=== PATIENT | male | born 1955 | race Caucasian/White ===

== ENCOUNTER 2017-01-22 09:42 | Inpatient (IN) | payer BC ==
[~2017-01-22] VITALS: Ht 172.7 cm; Wt 81.6 kg
[2017-01-22 09:42] VITALS: BP 96/57; PULSE 186; RESP 22; TEMP 96; O2SAT 100
--- NOTE | 2017-01-22 09:42 | NUR ---
Placed in room 5 . Placed on customer services manager, blood pressure machine and pulse oximeter. To gown for exam. Side rails up. Report given to TONG ANTONIO.
[2017-01-22] MEDS ORDERED: NACL 0.9% 1,000 ML IV SCH (09:51)
--- NOTE | 2017-01-22 09:51 | NUR ---
Nitroglycerin 0.4 mg administered x1, MD aware
--- NOTE | 2017-01-22 09:56 | NUR ---
Unable to administer second Nitro due to BP 96/57 , Dr Shanks aware and agreeable
[2017-01-22] MEDS ORDERED: NITROGLYCERIN 0.4 MG TAB.SUBL SL ONE (10:00)
[2017-01-22] MEDS ORDERED: DILTIAZEM HCL 25 MG/5 ML VIAL IVP ONE (10:00)
[2017-01-22] MEDS ORDERED: ASPIRIN 81 MG TAB.CHEW PO ONE (10:00)
--- NOTE | 2017-01-22 10:01 | NUR ---
cxr at bedside.
--- NOTE | 2017-01-22 10:16 | NUR ---
Pt reports feeling better, CP decrease to 3/10 at this time. SR on monitor. Co-workers at bedside.
[2017-01-22 10:32] LABS: BASOPHILS # (AUTO) 0.1 K/uL (0.0-0.2); BASOPHILS % (AUTO) 0.7 % (0.0-2.0); EOSINOPHILS # (AUTO) 0.1 K/uL (0.0-0.4); HEMATOCRIT 46.1 % (36-54); HEMOGLOBIN 14.7 g/dL (14.0-18.0); LYMPHOCYTES # (AUTO) 3.2 K/uL (1.0-5.5); LYMPHOCYTES % (AUTO) 35.3 % (20.5-51.5); MEAN CORPUSCULAR HEMOGLOBIN 26 pg (27-31); MEAN CORPUSCULAR HGB CONC 32 % (32-36); MEAN CORPUSCULAR VOLUME 83 fL (79.0-98.0); MONOCYTES # (AUTO) 0.6 K/uL (0.0-1.0); MONOCYTES % (AUTO) 6.5 % (1.7-9.3); NEUTROPHILS % (AUTO) 56.5 % (40.0-70.0); PLATELET COUNT (AUTO) 271 K/uL (130-430); RED BLOOD CELL COUNT(AUTO) 5.58 MIL/uL (4.2-6.2); RED CELL DISTRIBUTION WIDTH 19.3 % (9.0-15.0)
[2017-01-22 10:46] LABS: CALCIUM 8.7 mg/dL (8.4-11.0); CREATININE 1.39 mg/dL (0.55-1.30); POTASSIUM 3.3 mmol/L (3.5-5.1)
[2017-01-22 10:47] LABS: INR 0.9 (0.80-1.20)
[2017-01-22 11:02] LABS: ALBUMIN 3.9 g/dL (3.4-4.8); FREE T4 (FREE THYROXINE) 0.9 ng/dL (0.6-1.6); THYROID STIMULATING HORMONE 2.06 uIu/mL (0.34-4.82); TOTAL BILIRUBIN 1.6 mg/dL (0.0-1.0); TOTAL PROTEIN, SERUM 7.4 g/dL (6.4-8.3)
[2017-01-22 11:12] LABS: C-REACTIVE PROTEIN QUANT 0.2 mg/dL (0-0.5)
[2017-01-22 11:25] LABS: ERYTHROCYTE SEDIMENTATION RATE 6 MM/HR (0-15)
--- NOTE | 2017-01-22 11:37 | NUR ---
DR SELLERS SPEAKING TO DR BUENO
--- NOTE | 2017-01-22 11:43 | NUR ---
orders received from Dr Flores pt to be admitted to Tele -Afib
--- NOTE | 2017-01-22 11:46 | NUR ---
Spoke with Dr Shanks, states pt does not meet sepsis protocol
--- NOTE | 2017-01-22 11:50 | NUR ---
Report given to Peter ANTONIO, updated on status, labs and vitals. Pt stable for transfer. VSS, Controlled AFIB at 96. bp 107/88. CN notified. Will transfer pt to tele with monitor.
--- NOTE | 2017-01-22 12:05 | NUR ---
ADMISSION NOTE Received patient from ER via gurney. Patient admitted with diagnosis of chest pain. Patient is awake, alert, oriented X 4. Patient oriented to hospital room, call light, toileting, pain management and safety-teach back done. Patient informed that Adriana will be RN nurse and that their room number is 100b. Personal belongings checked and Belongings List documented. Call light within reach.
[2017-01-22 12:13] VITALS: BP 120/75; PULSE 96; RESP 17; TEMP 96.8; O2SAT 98
[2017-01-22 12:32] LABS: BILIRUBIN,URINE NEGATIVE (NEGATIVE); BLOOD, URINE NEGATIVE (NEGATIVE); CLARITY/URINE CLEAR (CLEAR); COLOR,URINE YELLOW (YELLOW); GLUCOSE,URINE NEGATIVE (NEGATIVE); KETONES,URINE NEGATIVE (NEGATIVE); LEUKOCYTE ESTERASE ,URINE NEGATIVE (NEGATIVE); NITRITE, URINE NEGATIVE (NEGATIVE); PROTEIN URINE NEGATIVE (NEGATIVE); UROBILINOGEN,URINE 0.2 (0.2-1.0)
[2017-01-22 12:53] VITALS: BP 120/75; PULSE 96; RESP 17; TEMP 96.8; O2SAT 98
--- NOTE | 2017-01-22 13:19 | NUR ---
SPOKE TO DR VASQUEZ THAT HE WAS ACCIDENTALLY CALLED FOR INTAKE MAN. STATES HE ALREADY SAW THE PATIENT AND TO KEEP CURRENT ORDERS ACTIVE HE HAS ALREADY SEEN THE PATIENT
--- NOTE | 2017-01-22 14:00 | NUR ---
NOTE: PATIENT IS RESTING COMFORTABLY IN BED. NO S/S OF DISTRESS OR SOB. PATIENT IS ALERT AND ORIENTED, ABLE TO EXPRESS NEEDS, AND ASK FOR ASSISTANCE. CALL LIGHT IN REACH, BED IN LOWEST POSITION, AND WILL CONTINUE TO MONITOR.
[2017-01-22] MEDS ORDERED: LISI40TA4 PO (14:06)
[2017-01-22] MEDS ORDERED: ALLO300T2 PO (14:06)
[2017-01-22] MEDS ORDERED: COLC0.6T67 PO (14:06)
--- NOTE | 2017-01-22 18:00 | NUR ---
PT IN BED, NO C/O OF CHEST PAIN, NO DISTRESS, RESTING COMFORTABLY, PT WAITING FOR MD. TOLD PT THAT MD MAY BE COMING BACK TONIGHT
--- NOTE | 2017-01-22 18:03 | NUR ---
Consult Called Reason for consultation: A-FIB Was consult called: Yes Person who was notified:Scarlet Consulting Physician: Rodrigo Hilton Order by: Sandra
[2017-01-22] MEDS ORDERED: ACETAMINOPHEN 325 MG TABLET PO PRN (18:45)
[2017-01-22] MEDS ORDERED: MORPHINE 2 MG/ML INJ. SYRINGE IVP PRN (18:45)
--- NOTE | 2017-01-22 19:36 | NUR ---
Closing note: patient is resting comfortably in bed. no s/s of distress or sob. patient is alert and oriented, able to express needs, and ask for assistance. Dr. Flores aware of potassium level. He was called to inform and ask for med rec to be done. He imputed orders. Call light in reach, bed in lowest position, and will give report to night nurse.
--- NOTE | 2017-01-22 20:00 | NUR ---
OPENING ASSESSMENT PATIENT ALERT/ORIENTED X4. SPEECH IS CLEAR AND APPROPRIATE. DENIES PAIN. AMBULATES WITH STEADY GAIT. TELE SHOWS SR WITH ST SEGMENT DEPRESSION. DENIES CHEST PAIN. ALL O2 SAT. ON R/A IS 97%. NO SOB NOTED.RAC 24 G INTACT AND PATENT. TOLERATING CARDIAC DIET WELL. DENIES NAUSEA. VOIDING CLEAR YELLOW IN URINAL. CALL LIGHT WITHIN EASY ACCESS. NOTIFIED PT. TO CALL NURSE FOR ALL NEEDS, ESPECIALLY CHEST PAIN AND SOB.
[2017-01-22 20:15] VITALS: BP 135/84; PULSE 80; RESP 18; TEMP 98.7; O2SAT 97
--- NOTE | 2017-01-22 21:10 | NUR ---
DR.REZVANI DR. BLUM NOTIFIED THAT PATIENTS TROPONIN 21.352. SEE ORDERS NEWLY ENTERED. VITALS STABLE. PATIENT DENIES PAIN OR ANY DISCOMFORT @ THIS TIME.
[2017-01-22] MEDS ORDERED: *HEPARIN PER PHARMACY XX ONE (21:15)
[2017-01-22] MEDS ORDERED: HEPARIN SODIUM,PORCINE 5000 UNITS/ML VIAL IVP PRN (21:15)
[2017-01-22] MEDS: METOPROLOL TARTRATE 25 MG TABLET PO SCH (21:28)
[2017-01-22] MEDS ORDERED: HEPARIN SODIUM,PORCINE 2000 UNITS/0.4 ML BOLUS IVP PRN (22:00)
--- NOTE | 2017-01-22 22:00 | NUR ---
DR. JORGE PATEL CARDIOLOGY NOTIFIED PT. TROPONIN 21.352. REPEATED DR. BLUM HEPARIN DRIP ORDERS. AGREED WITH CURRENT ORDERS.
[2017-01-22] MEDS ORDERED: POTASSIUM CHLORIDE 20 MEQ TAB.PRT.SR PO ONE (22:30)
[2017-01-22] MEDS: HEPARIN 25,000 UNITS/D5W 250ML 250 ML IV PRN (22:33)
--- NOTE | 2017-01-22 22:45 | NUR ---
HEPARIN DRIP GAVE HEPARIN 3000 UNITS IVP AND STARTED ON HEPARIN IV DRIP 7ML/HR. 700 UNITS/HR.
[2017-01-23 00:12] VITALS: BP 116/73; PULSE 77; RESP 18; TEMP 97.2; O2SAT 98
--- NOTE | 2017-01-23 00:50 | NUR ---
PT,PTT, INR RESULTS PTT- 61.4
[2017-01-23 01:45] LABS: PROTHROMBIN TIME 10.4 SECS (9.5-12.5)
--- NOTE | 2017-01-23 02:05 | NUR ---
MD STRICKLAND CALLED [facility] AT SPOKE WITH DR.JANDIAL WRIGHT RAJNISH TEST ENG.
--- NOTE | 2017-01-23 02:16 | NUR ---
PAGED PAGED JAKOB HOPE AT [phone] SPOKE WITH TEMI.
--- NOTE | 2017-01-23 02:20 | NUR ---
DR. PEDRO HOPE NOTIFIED PATIENT ON HEPARIN DRIP. MADE AWARE PATIENT TROPONIN 21.353. STATED THAT DR. BLUM WAS NOTIFIED EARLIER AND ALSO DR HOLLIS NOTIFIED WAS NOTIFIED.
--- NOTE | 2017-01-23 02:20 | NUR ---
PAGED PAGED SILKE LIN AT [phone] SPOKE WITH TEMI.
--- NOTE | 2017-01-23 02:47 | NUR ---
2ND CALL OUT TO SILKE BETHEA AT [phone] SPOKE WITH TEMI.
--- NOTE | 2017-01-23 03:19 | NUR ---
DR.REZVANI DR. BLUM AWARE OF RECENT PTT 61.4
[2017-01-23 03:59] VITALS: BP 121/84; PULSE 68; RESP 18; TEMP 96.6; O2SAT 99
--- NOTE | 2017-01-23 04:00 | NUR ---
ROUNDS PATIENT DENIES CHEST PAIN OR ANY DISCOMFORT. RESTING QUIETLY. CONTINUES ON HEPARIN DRIP 700UNITS/HR.
--- NOTE | 2017-01-23 06:25 | NUR ---
CLOSING NOTES NO DISTRESS NOTED. HEPARIN DRIP @ 700UNITS/HR. DENIES CHEST PAIN OR ANY OTHER DISCOMFORT. CALL LIGHT WITHIN EASY ACCESS. INFORMED PATIENT TO CALL NURSE FOR ALL NEEDS, ESPECIALLY CHEST PAIN, SOB.
[2017-01-23 07:28] LABS: CALCIUM 8.5 mg/dL (8.4-11.0); CREATININE 0.95 mg/dL (0.55-1.30); POTASSIUM 3.9 mmol/L (3.5-5.1)
--- NOTE | 2017-01-23 07:40 | NUR ---
am rounds, change of shift. awake, alert and oriented, denies any chest pain nor shortness of breath. On Heparin drip at 700 units/hr @ 7cc/hr.call light within reach, instructed to call for help.
--- NOTE | 2017-01-23 07:50 | NUR ---
md rounds: patient seen by dr urbano with orders transfer to [facility] for cardiac catheterization.ekg results seen by dr urbano.
[2017-01-23 08:00] VITALS: PULSE 80; RESP 18; TEMP 97.4; O2SAT 95
[2017-01-23] MEDS: ASPIRIN 325 MG TABLET (ECOTRIN) PO SCH (08:31)
[2017-01-23] MEDS: METOPROLOL TARTRATE 25 MG TABLET PO SCH ×2 (08:31→21:36)
--- NOTE | 2017-01-23 08:36 | NUR ---
due po meds given, instructed to be NPO after breakfast per nurse Kourtney.
--- NOTE | 2017-01-23 08:40 | NUR ---
CM: Rec'd order for transfer to [facility] for cardiac cath. No insurance contact information noted in BAR notes--I called Lexii in admitting to urgently obtain contact info--Pt has [facility] MG--I looked in [facility] system and found ph#for his MD office...called [phone] per his MDs office instructions and asked for case hardener--will initiate transfer--JAKE ANTONIO Addendum: 01/23/17 at 0904 by Claudette KENNEDY Ordered Radiology CD. Placed transportation packet in nurses station. Addendum: 01/23/17 at 0915 by Vivian Goldstein RN DAGOBERTO for Ab at [phone] to call me back cameron--I called back again and insisted on speaking with live person instead of leaving message--I was given Out of network jose juan Rivera's cell#[phone]--she said [facility] is contracted--she will have their case hardener call me back--JAKE ANTONIO
[2017-01-23] MEDS ORDERED: ATORVASTATIN 20 MG TABLET PO ONE (09:30)
--- NOTE | 2017-01-23 10:00 | NUR ---
Faxed UR review, all pertinent medical information to [facility] per request of Lexii in admitting as she said BS at risk as pt is OON to BS fax#[phone]--ref#[id number]--Byy Violetta at , BS will review case promptly and make decision where to transfer pt, as they might want to transfer pt to nearest hospital that has cardiac cardiac cath lab manager instead of transfer to [facility], which is still considered Out of network--requested transportation auth also--also faxed UR review and all pertinent medical information to Tresa at [facility] at fax#[phone]--CB#[phone]--I checked with [facility] cardiac cath lab manager-Lilibeth, and she said they have available opening if pt needs cath there--PMD and aerospace medicine physician Dr. Hilton made aware-pt updated and he is agreeable to transfer to another hospital for cardiac cath- He said he had his last angiogram at [facility] in 2013--nurse Kourtney made aware also--JAKE RN
--- NOTE | 2017-01-23 10:10 | NUR ---
Heparin drip: PTT 44.9 , rate increase to 800 u/hr per protocol. repeat PTT after 6 hours of adjustment.
--- NOTE | 2017-01-23 10:55 | NUR ---
Case mgt: I called [facility] at [phone] as our fax to them transmitted by [phone]--I spoke to Chani Ramirez in authorizations department-she said the case is being reviewed-I expressed the urgency needed for the authorization to Chani Crocker. She said there is nothing more she can do as it is in urgent review already and asked me to call back after lunchtime. I let her know pt will need nurse transport as pt is on heparin drip also and ambulance request is on fax cover sheet already faxed to [facility] [employer] [facility] earlier today- RN Addendum: 01/23/17 at 1302 by Claudette KENNEDY Called contracted ambulance [facility] [phone] spoke with Thomas arranged ACLS (Customer Operations Intern) transport brick picker soonest available to [facility] direct admit builder's labourer. Thomas stated dispatch will return call with time transport will be arranged Conf.#[id number].
[2017-01-23 12:00] VITALS: BP 112/79; PULSE 78; RESP 18; TEMP 97.4; O2SAT 97
--- NOTE | 2017-01-23 12:15 | NUR ---
Case mgt: Calling [facility] again to f/u on urgent transfer request to hospital for cardiac catheterization--S/W Geovanna, who says [facility]-I explained I have initiated this urgent request for transfer for cardiac cath since early am--she transferred me to Geovanna at , who said initially she will send a list-Iasked about [facility], she transferred me to provider services dept and I had to explain again pt situation-HMO, etc.. but [facility] is plan at risk, as I was told by Violetta at [facility]-I am now told [facility] is [facility] provider and to have [facility] call them at [phone]--ALISON Wilkins has faxed face sheet and order for cardiac cath to [facility] already--I called [facility] and s/w admitting, who is giving Amelia message to call me back. I explained urgent need as apparently Dr. Hilton scheduled pt at 2pm today--I have left message with Dr. Hilton to call me regarding scheduled time of procedure as [facility] hasn't gotten auth yet--ALISON Wilkins is calling [facility] to schedule ACLS ambulance transport--JAKE ANTONIO
--- NOTE | 2017-01-23 12:43 | NUR ---
CARDIO PAGED: CALLED DR BUENO'S EXCHANGE AND SPOKE WITH NITESH.
--- NOTE | 2017-01-23 12:46 | NUR ---
CARDIO: SPOKE WITH DR BUENO ,PT DOES NOT NEED HEPARIN DRIP DURING TRANSFER,MAY GIVE HEPARIN IV BOLUS PRIOR TO TRANSFER.
--- NOTE | 2017-01-23 13:09 | NUR ---
Case mgt--: I called Lilibeth in cath lab radiological technologist at [facility] and explained I had left messages with both Amelia and Shobha in admitting, we faxed order and face sheet to them and auth probably still pending at this time-Ambulance transport initiated by severiano Wilkins through [facility]-but no auth for transfer yet to [facility]--Lilibeth in cath lab radiological technologist will pass on info to Dr. Hilton. JAKE ANTONIO Addendum: 01/23/17 at 1401 by Claudette KENNEDY Received call from Frances at [facility] who stated is at risk and [facility] is not contracted with . Frances will cancel transport. Called JAVY Gtz at [facility] [phone] who directed DCP to call SAMPSON Shipley [phone]. Called Violetta who stated due to patient being out of area [facility] is at risk for transport. Called [facility] [phone] spoke with Akosua zuñiga for Conf.#[id number] transport to be reactivated call got transferred to Janeth who works in benefits dept who confirmed with Darcy at [facility] call Ref#[id number] is at risk for transport due to zip code patient is being transported from. Called [facility] ambulance [phone] placed ACLS transport on will call.
--- NOTE | 2017-01-23 13:32 | NUR ---
pt. up in chair conversing with roommate, denies any chest pain. remain NPO, still waiting for authorization for the procedure and transfer.
--- NOTE | 2017-01-23 14:27 | NUR ---
DC planning: Per Geovanna at [facility], she will not give authorization for [facility] transfer and keeps telling me [facility] needs to call for auth once they receive pt into a bed. I [facility] explained [facility], Amelia, cannot give me a bed and accept pt until they have an auth, and it is considered EMTALA violation to just send a pt to a facility without an acceptance first from the facility. Geovanna kept saying this is their process. I s/w Dr. Hilton, he said to transfer [facility] and cardiac cath no longer urgent request--I s/w to pt about this plan--I contacted Violetta at [facility] who said to call [facility] at [phone]--I called (that is warehouse coordinator#) and left message to call me regarding transfer to [facility]--JAKE ANTONIO
[2017-01-23] MEDS ORDERED: COMMUNICATION ORDER XX ONE (14:45)
--- NOTE | 2017-01-23 15:35 | NUR ---
DC planning: I spoke with Hyacinth at [facility]--she has no tele bed currently-I faxed her info to fax#[phone]--I called Tresa at [facility] to see which MDs are contracted --Hospitalist=Dr. Conti [phone], M48/M60 Tank Driver=Dr. Duffy at [phone]--I gave both of these MD names/# to Dr. Hilton. Per Violetta at [place], (she checked with [employer])-we are to use [employer] service (It's on will-call) to arrange ACLS transport-use auth#[id number]-Gecmwljo packet and cd at nurse station--nurse Oconnell made aware-JAKE ANTONIO
[2017-01-23] MEDS ORDERED: HEPARIN SODIUM,PORCINE 5000 UNITS/ML VIAL IV ONE (17:00)
[2017-01-23 17:12] VITALS: BP 133/80; PULSE 86; RESP 17; TEMP 98.6; O2SAT 98
--- NOTE | 2017-01-23 18:10 | NUR ---
pt. sitting at the edge of the bed and having his dinner, no complaints, still waiting patiently.
--- NOTE | 2017-01-23 18:15 | NUR ---
PTT: PTT=44.3.HEPARIN DRIP RATE ADJUSTED TO 900 UNITS/H PER PROTOCOL.REPEAT APTT LEVEL AFTER 6HOURS OF RATE ADJUSTMENT.
--- NOTE | 2017-01-23 18:45 | NUR ---
condition unchanged, remain on Heparin drip @ 800 units/hr, no chest pain.nurse Kourtney will endorse pt. on change of shift.
[2017-01-23 20:00] VITALS: BP 135/89; PULSE 79; RESP 18; TEMP 97; O2SAT 96
--- NOTE | 2017-01-23 20:00 | NUR ---
Initial PM Note Pt is resting comfortably in bed with Heparin drip infusing well in RAC at 900 units/hr. IV site is without any signs of infiltration. No signs of active bleeding noted. Pt is able to make his needs known. No c/o pain or discomfort. Call light is with pt. Will continue o monitor pt.
--- NOTE | 2017-01-23 22:00 | NUR ---
Rounds Pt is resting comfortably in bed. Call light is with pt.
--- NOTE | 2017-01-24 | NUR ---
Rounds Pt is sleeping comfortably in bed. No respiratory distress noted. Call light is with pt.
[2017-01-24 00:22] VITALS: BP 129/81; PULSE 75; RESP 18; TEMP 98; O2SAT 96
--- NOTE | 2017-01-24 01:55 | NUR ---
PTT Result PTT 45.7. Heparin Drip rate increased by 100 units (1 ml) per protocol from 900 units/hr to 1000 units/hr. Next PTT scheduled for 0755, six hours after rate adjustment. Pt is sleeping comfortably in bed and no evidence of active bleeding noted. IV site is without any signs of infiltration. Call light is with pt.
--- NOTE | 2017-01-24 03:30 | NUR ---
Rounds Pt is sleeping without any resp distress noted. Fall and safety precautions are in place. Heparin drip is infusing well.
[2017-01-24 03:40] VITALS: BP 139/90; PULSE 75; RESP 18; TEMP 97.5; O2SAT 97
[2017-01-24] MEDS: HEPARIN 25,000 UNITS/D5W 250ML 250 ML IV PRN (04:27)
--- NOTE | 2017-01-24 05:00 | NUR ---
Rounds Pt is sleeping comfortably in bed.
--- NOTE | 2017-01-24 06:58 | NUR ---
Closing Note Pt is awake and resting comfortably in bed. All pt's needs were attended to. No fall or injury noted this shift. Will endorse to day shift nurse.
[2017-01-24 08:00] VITALS: BP 144/92; PULSE 100; RESP 18; TEMP 99; O2SAT 99
--- NOTE | 2017-01-24 08:00 | NUR ---
initial notes rec patient awake alert eating breakfast. resp easy and unlabored. was concerned re his insurance . explained to patient will talk to spring encaser re stay and transfer. denies pain . side rails up and locked call light within reached.
[2017-01-24] MEDS: ASPIRIN 325 MG TABLET (ECOTRIN) PO SCH (08:48)
[2017-01-24] MEDS: METOPROLOL TARTRATE 25 MG TABLET PO SCH (08:48)
[2017-01-24] MEDS ORDERED: ATORVASTATIN 20 MG TABLET PO SCH (09:00)
--- NOTE | 2017-01-24 10:12 | NUR ---
DC planning: Called to [facility] dry house tender ph#[phone]---per Hyacinth, no tele bed available yet and she is made aware our help desk consultant s/w Dr. Conti and left message last night with their help desk consultant Dr. Duffy--I made her aware MDs would like to proceed with cardiac cath at their facility if possible. Our help desk consultant hasn't rounded yet. Dr. Flores here and made aware no bed yet at [place]---nurse Ce made aware and she will update pt with this info--JAKE RN
--- NOTE | 2017-01-24 10:20 | NUR ---
rounds dr urbano and dr strong came and talked with patient. still insisting of wanting to be discharged and go to his primary md. waiting for yaz dependency case manager re possible transfer to [facility] for cardiac cath. no sob noted.
--- NOTE | 2017-01-24 10:50 | NUR ---
Per request of Dr. Hilton, I paged warehouse inventory clerk Hyacinth at [facility] to Dr. Hilton's cell # because he wants to have pt go directly to landscape laborer at [facility]--house sup pager#[phone]-nurse Bertha nguyen- RN
[2017-01-24 11:26] VITALS: BP 139/81; PULSE 91; RESP 19; TEMP 97.8; O2SAT 98
--- NOTE | 2017-01-24 12:30 | NUR ---
notes was picked up by a co-worker and stated will drive him to [place] and immediately will go to his primary md. pt requested part copies of his cardio result and was given afterr signing release of med record. ambulating and escorted out of the hospital. stable needs attended. id band and ivl was removed.
--- NOTE | 2017-01-24 12:30 | NUR ---
closing notes pt sign ama, explained consequences of signing it and stated understanding. dr urbano made rounds again and informed re ama.
[2017-01-24] MEDS ORDERED: METOPROLOL TARTRATE 50 MG TABLET PO SCH (21:00)
== END 2017-01-24 12:35 | disposition left against medical advice (07) | DRG 282 ==
LOC: SED 09:42 → STU 11:55 → SMU 12:11 → STU 12:35
PROVIDERS: ADMIT Internal Medicine Hospice and Palliative Medicine; ATTEND Internal Medicine Hospice and Palliative Medicine
DX: I21.3 ST elevation (STEMI) myocardial infarction of unspecified site (principal); I10 Essential (primary) hypertension; E87.6 Hypokalemia; M10.9 Gout, unspecified; I48.0 Paroxysmal atrial fibrillation; E78.5 Hyperlipidemia, unspecified; Z53.21 Procedure and treatment not carried out due to patient leaving prior to being seen by health care provider
CPT/HCPCS: 36415; 71010; 80048; 80053; 80061; 81003; 83036; 83605; 83874; 84439; 84443-TC; 84484; 85025; 85610-TC; 85651-TC; 85730-TC; 86140; 87040-TC; 87086; 93005; 93306; 96361; 96374; 99291; J1644; J7030